=== PATIENT | female | born 1980 | race Caucasian/White ===

== ENCOUNTER → 2016-11-07 | Outpatient (CLI) | payer OTHER ==
[~2016-11-07] MED LIST: ANAPROX DS550 MG PO; ATARAX25 MG PO; ATIVAN0.5 MG PO; BACTRIM DS 8001 TA1 PO; BENADRYL ALLERG25 M5 PO; BENTYL10 MG PO; CIPROFLOXACIN500 MG PO; CLARITIN-D 12HR1 T12 PO; CLARITIN-D 24 H1 T24 PO; CLARITIN10 MG PO; CLEOCIN150 MG PO; CYCLOBENZAPRINE10 MG PO; FIORICET 325 MG1 TAB PO; Fioricet 325 MG1 TAB PO; HYDROCODONE BIT1 T11 PO; IBU-8800 MG PO; IBU800 MG PO; LEVOTHYROXINE0.05 M1 PO; MEDROL DOSEPAK4 MG PO; MOTRIN600 MG PO; MOTRIN800 MG PO; Motrin,Rufen800 MG PO; NORFLEX100 MG PO; OVRAL-21 50 MCG1 TAB PO; PREDNICOT20 MG PO; PRILOSEC20 M1 PO; PROVENTIL0.09 MG/AC IH; ROBITUSSIN AC 10 MG/ PO; TESSALON PERLE200 MG PO; TOPAMAX50 MG PO; TRAMADOL HCL50 MG PO; TRIMOX500 MG PO; VIBRAMYCIN100 MG PO; VICODIN 5/500 505 MG PO; VITAMIN D1000 IU PO; WALKER; ZANTAC150 MG PO; ZIPRASIDONE HCL20 M1 PO; ZITHROMAX Z PA250 MG PO; ZITHROMAX250 MG PO; ZOFRAN ODT4 MG SL; ZOFRAN4 MG PO; ZOLOFT100 MG PO
== END | disposition home or self-care (01) ==
LOC: CT 07:45
DX: R22.31 Localized swelling, mass and lump, right upper limb (principal)

== ENCOUNTER → 2016-11-14 | Outpatient (CLI) | payer OTHER | END | disposition home or self-care (01) | LOC: MRI 06:49 | DX: M19.011 Primary osteoarthritis, right shoulder (principal) ==

== ENCOUNTER 2018-04-09 19:32 | Emergency (ER) | payer OTHER ==
[~2018-04-09] VITALS: Ht 147.3 cm; Wt 76.7 kg
--- NOTE | ~2018-04-09 | EKG ---
[place], [place] ELECTROCARDIOGRAM REPORT NAME: MICHAEL HERNÁNDEZ UNIT #: [id number] ROOM: DOCTOR: EPIPHANY DRAFT REPORT BIRTHDATE: [birth year] [facility] Test Date: 2018-04-09 Test Time: 20:10:11 Pat Name: MICHAEL HERNÁNDEZ Department: Room: Gender: F Health Promotion Officer: ANG : 1980 Requested By: LUPE ISIDRO Order Number: [id number] Reading MD: Shankar Langford MD Measurements Intervals Marcy Rate: 55 P: 19 NM: 148 QRS: 30 QRSD: 78 T: 19 QT: 423 QTc: 405 Interpretive Statements Sinus rhythm Low voltage, precordial leads Electronically Signed On 04-11-2018 11:03:02 PDT by Shankar Langford MD CM:EKGRPT:ELECTROCARDIOGRAM REPORT 09 1103 LUPE SALAZAR DRAFT REPORT LUPE ISIDRO
[2018-04-09 20:10] LABS: BILIRUBIN NEGATIVE (NEGATIVE); BLOOD NEGATIVE (NEGATIVE); CLARITY CLEAR (CLEAR); COLOR YELLOW (YELLOW); GLUCOSE NEGATIVE (NEGATIVE); KETONE NEGATIVE (NEGATIVE); LEUKO ESTERASE TRACE (NEGATIVE); NITRITE NEGATIVE (NEGATIVE); PH 6.5 (5.0-9.0); SPECIFIC GRAVITY <= 1.005 (1.005-1.030); UROBILINOGEN 0.2 E.U./dl (0.2-1.0)
[2018-04-09 20:11] LABS: BASO % 0.3 % (0.0-1.0); EOS # 0.4 10*3/uL (0.0-0.4); EOS % 3.7 % (1.0-4.0); HEMATOCRIT 36.8 % (37.0-47.0); HEMOGLOBIN 12.3 g/dl (12.0-16.0); LYMPH # 2.4 10*3/uL (1.3-4.4); LYMPH % 23.6 % (27.0-41.0); MEAN CELL VOLUME 86.4 fl (81.0-99.0); MEAN CORPUSCULAR HGB 28.9 pg (27.0-31.0); MEAN CORPUSCULAR HGB CONC 33.4 g/dl (33.0-37.0); MEAN PLATELET VOLUME 10.1 fl (9.6-12.3); MONO # 0.6 10*3/uL (0.1-1.0); MONO % 5.8 % (3.0-9.0); NEUT # 6.6 10*3/uL (2.3-7.9); NEUT % 66.3 % (47.0-73.0); PLATELET COUNT AUTOMATED 258 10*3/uL (130-400); RED BLOOD COUNT 4.26 10*6/uL (4.10-5.10); RED CELL DISTRI WIDTH 12.4 % (0-14.5)
[2018-04-09 20:16] LABS: RBC 0-2 rbc/hpf (0-2)
[2018-04-09 20:17] LABS: BACTERIA 2+
[2018-04-09 20:27] LABS: ALBUMIN 3.6 gm/dl (3.1-4.5); ALKALINE PHOSPHATASE 80 U/L (45-117); BUN 8 mg/dl (7-24); CHLORIDE 103 mmol/L (98-107); CREATININE 0.99 mg/dL (0.55-1.02); LIPASE 157 U/L (73-393); POTASSIUM 3.9 mmol/L (3.5-5.1); SGOT/AST 18 IU/L (3-35); SGPT/ALT 19 U/L (12-78); SODIUM 138 mmol/L (136-145); TOTAL PROTEIN 7.4 gm/dL (6.4-8.2)
[2018-04-09 20:29] LABS: BETA-HCG, QUANT < 1.0 mIU/mL (1-3)
[2018-04-09 21:03] VITALS: BP 103/63
[2018-04-09] MEDS ORDERED: Zofran4 MG SL (23:19)
[2018-04-09] MEDS ORDERED: ULTRAM50 MG PO (23:19)
[2018-04-09] MEDS ORDERED: PEPCID40 MG PO (23:19)
== END 2018-04-09 23:37 | disposition home or self-care (01) ==
LOC: ED 19:32
PROVIDERS: Student in an Organized Health Care Education/Training Program
DX: R10.9 Unspecified abdominal pain (principal); R11.0 Nausea; Z88.0 Allergy status to penicillin; Z88.6 Allergy status to analgesic agent; Z88.1 Allergy status to other antibiotic agents; Z79.899 Other long term (current) drug therapy

== ENCOUNTER 2020-10-17 13:30 | Emergency (ER) | payer MEDICAID ==
[~2020-10-17] VITALS: Ht 147.3 cm; Wt 72.6 kg
[~2020-10-17 13:30] MED LIST changes: +PEPCID40 MG PO; +ULTRAM50 MG PO; +Zofran4 MG SL
[2020-10-17 13:37] VITALS: BP 127/75
== END 2020-10-17 16:45 | disposition home or self-care (01) ==
LOC: ED 13:30
DX: S93.402A Sprain of unspecified ligament of left ankle, initial encounter (principal); S86.912A Strain of unspecified muscle(s) and tendon(s) at lower leg level, left leg, initial encounter; S90.32XA Contusion of left foot, initial encounter; S90.112A Contusion of left great toe without damage to nail, initial encounter; S90.122A Contusion of left lesser toe(s) without damage to nail, initial encounter; Z88.1 Allergy status to other antibiotic agents; Z88.5 Allergy status to narcotic agent; Z88.0 Allergy status to penicillin; Z79.899 Other long term (current) drug therapy; Z98.51 Tubal ligation status; Z90.49 Acquired absence of other specified parts of digestive tract; W10.8XXA Fall (on) (from) other stairs and steps, initial encounter; Y93.89 Activity, other specified; Y92.89 Other specified places as the place of occurrence of the external cause; Y99.8 Other external cause status

== ENCOUNTER 2021-05-30 17:45 | Emergency (ER) | payer OTHER ==
[~2021-05-30] VITALS: Ht 147.3 cm; Wt 68.5 kg
[2021-05-30 17:55] VITALS: BP 118/76
[2021-05-30 20:09] LABS: BASO % 0.5 % (0.0-1.0); EOS # 0.6 10*3/uL (0.0-0.4); EOS % 7.3 % (1.0-4.0); LYMPH # 3.2 10*3/uL (1.3-4.4); LYMPH % 37.5 % (27.0-41.0); MEAN CELL VOLUME 84.2 fl (81.0-99.0); MEAN CORPUSCULAR HGB 28.5 pg (27.0-31.0); MEAN CORPUSCULAR HGB CONC 33.8 g/dl (33.0-37.0); MONO # 0.6 10*3/uL (0.1-1.0); MONO % 7.1 % (3.0-9.0); NEUT # 4.1 10*3/uL (2.3-7.9); NEUT % 47.4 % (47.0-73.0); PLATELET COUNT AUTOMATED 284 10*3/uL (130-400); RED BLOOD COUNT 4.63 10*6/uL (4.10-5.10); RED CELL DISTRI WIDTH 12.1 % (0-14.5); WHITE BLOOD COUNT 8.6 10*3/uL (4.8-10.8)
[2021-05-30 20:21] LABS: ACT PARTIAL THROMBO TIME 26.1 SECONDS (20.0-32.1)
[2021-05-30 20:25] LABS: ALBUMIN 3.2 gm/dl (3.1-4.5); ALKALINE PHOSPHATASE 78 U/L (45-117); BUN 6 mg/dl (7-24); CHLORIDE 107 mmol/L (98-107); CREATININE 0.87 mg/dL (0.55-1.02); LIPASE 89 U/L (73-393); POTASSIUM 3.7 mmol/L (3.5-5.1); SGOT/AST 16 IU/L (3-35); SGPT/ALT 18 U/L (12-78); SODIUM 139 mmol/L (136-145); TOTAL PROTEIN 7.3 gm/dL (6.4-8.2)
[2021-05-30 20:26] LABS: TROPONIN I < 0.015 ng/ml (<0.045)
[2021-05-30 20:58] LABS: BILIRUBIN Negative (Negative); BLOOD Negative (Negative); CLARITY Cloudy (Clear); COLOR Yellow (Yellow); GLUCOSE Negative (Negative); KETONE Trace (Negative); LEUKO ESTERASE 2+ (Negative); NITRITE Negative (Negative); PH 5.5 (4.5-8.0)
[2021-05-30 21:07] LABS: URINE AMPHETAMINES < 1000 (1000ng/ml); URINE BARBITURATES < 200 (200ng/ml); URINE BENZODIAZEPINES < 200 (200ng/ml); URINE CANNABINOIDS (THC) < 50 (50ng/ml); URINE COCAINE < 300 (300ng/ml); URINE METHADONE < 300 (300ng/ml); URINE OPIATES < 300 (300ng/ml)
[2021-05-30 21:08] LABS: BACTERIA 3+; EPITHELIAL CELLS 41-50; WBC TNTC wbc/hpf (0-5)
[2021-05-30 21:10] LABS: URINE PHENCYCLIDINE < 25 (25ng/ml)
[2021-05-30] MEDS ORDERED: SEPTDS PO (22:31)
== END 2021-05-30 22:38 | disposition left against medical advice (07) ==
LOC: ED 17:45
PROVIDERS: Physician Assistant
DX: G45.9 Transient cerebral ischemic attack, unspecified (principal); R30.0 Dysuria; Z88.1 Allergy status to other antibiotic agents; Z88.5 Allergy status to narcotic agent; Z88.0 Allergy status to penicillin; Z79.899 Other long term (current) drug therapy; Z98.890 Other specified postprocedural states; Z98.51 Tubal ligation status; Z90.49 Acquired absence of other specified parts of digestive tract

== ENCOUNTER 2022-02-21 11:41 | Emergency (ER) | payer OTHER ==
[~2022-02-21] VITALS: Ht 124 cm; Wt 67.1 kg
[~2022-02-21 11:41] MED LIST changes: +SEPTDS PO
[2022-02-21] MEDS ORDERED: OXYBUTYNIN ER15 MG PO (11:59)
[2022-02-21] MEDS ORDERED: LEVOTHYROXINE112 MC1 PO (12:00)
[2022-02-21] MEDS ORDERED: TRAZODONE150 MG PO (12:01)
[2022-02-21 12:02] VITALS: BP 128/82
== END 2022-02-21 16:38 | disposition home or self-care (01) ==
LOC: ED 11:41
DX: G43.909 Migraine, unspecified, not intractable, without status migrainosus (principal); R11.2 Nausea with vomiting, unspecified; Z88.1 Allergy status to other antibiotic agents; Z88.5 Allergy status to narcotic agent; Z88.0 Allergy status to penicillin; Z79.899 Other long term (current) drug therapy; Z98.51 Tubal ligation status; Z98.890 Other specified postprocedural states; Z90.49 Acquired absence of other specified parts of digestive tract

== ENCOUNTER 2022-07-01 08:50 | Emergency (ER) | payer OTHER ==
[~2022-07-01] VITALS: Ht 147.3 cm; Wt 71.7 kg
[~2022-07-01 08:50] MED LIST changes: +LEVOTHYROXINE112 MC1 PO; +OXYBUTYNIN ER15 MG PO; +TRAZODONE150 MG PO
[2022-07-01 09:23] VITALS: BP 137/74
== END 2022-07-01 10:45 | disposition home or self-care (01) ==
LOC: ED 08:50
DX: J02.9 Acute pharyngitis, unspecified (principal); R05.9 Cough, unspecified; R50.9 Fever, unspecified; Z88.0 Allergy status to penicillin; Z88.1 Allergy status to other antibiotic agents; Z88.8 Allergy status to other drugs, medicaments and biological substances; Z79.899 Other long term (current) drug therapy; Z98.890 Other specified postprocedural states; Z90.49 Acquired absence of other specified parts of digestive tract; Z98.51 Tubal ligation status

== ENCOUNTER 2023-10-01 18:30 | Emergency (ER) | payer OTHER ==
[~2023-10-01] VITALS: Ht 147.3 cm; Wt 76.2 kg
[2023-10-01 18:49] VITALS: BP 131/79
[2023-10-01] MEDS ORDERED: LUNESTA1 M1 PO (19:00)
[2023-10-01] MEDS ORDERED: VITAMIN D31250 MC2 PO (19:01)
[2023-10-01] MEDS ORDERED: HYDROXYZINE HCL25 MG PO (19:02)
== END 2023-10-01 19:45 | disposition left against medical advice (07) ==
LOC: ED 18:30
DX: M79.652 Pain in left thigh (principal); K21.9 Gastro-esophageal reflux disease without esophagitis; F32.A Depression, unspecified; Z53.29 Procedure and treatment not carried out because of patient's decision for other reasons; Z88.1 Allergy status to other antibiotic agents; Z88.5 Allergy status to narcotic agent; Z88.0 Allergy status to penicillin; Z88.8 Allergy status to other drugs, medicaments and biological substances; Z90.49 Acquired absence of other specified parts of digestive tract; Z98.51 Tubal ligation status; Z98.890 Other specified postprocedural states

== ENCOUNTER → 2023-10-02 | Outpatient (CLI) | payer OTHER ==
[~2023-10-02] MED LIST changes: +HYDROXYZINE HCL25 MG PO; +LUNESTA1 M1 PO; +VITAMIN D31250 MC2 PO
== END | disposition home or self-care (01) ==
LOC: US 09:41
PROVIDERS: ATTEND Nurse Practitioner
DX: R60.9 Edema, unspecified (principal); R20.2 Paresthesia of skin

== ENCOUNTER → 2024-03-05 | Outpatient (CLI) | payer OTHER | END | disposition home or self-care (01) | LOC: US 07:55 | PROVIDERS: ATTEND Nurse Practitioner | DX: M25.562 Pain in left knee (principal) ==

== ENCOUNTER → 2024-11-07 | Outpatient (CLI) | payer OTHER | END | disposition home or self-care (01) | LOC: RAD 10:55 | PROVIDERS: ATTEND Nurse Practitioner | DX: M25.552 Pain in left hip (principal) ==

== ENCOUNTER → 2024-11-13 | Outpatient (CLI) | payer OTHER ==
[2024-11-13 17:23] LABS: FREE T4 1.38 ng/dl (0.89-1.76)
== END | disposition home or self-care (01) ==
LOC: LAB 16:46
PROVIDERS: ATTEND Nurse Practitioner
DX: E03.9 Hypothyroidism, unspecified (principal)

== ENCOUNTER 2024-11-26 10:41 | Emergency (ER) | payer OTHER ==
[~2024-11-26] VITALS: Ht 147.3 cm; Wt 78.9 kg
[2024-11-26 10:56] VITALS: BP 125/72
[2024-11-26] MEDS ORDERED: Metoclopramide Hydrochloride 10 MG/2 ML VIAL IV ONE (11:05)
[2024-11-26] MEDS ORDERED: diphenhydrAMINE hydrochloride 50 MG/ML VIAL IV ONE (11:05)
[2024-11-26] MEDS ORDERED: SODIUM CHLORIDE 0.9% 1,000 ML IV ONE (11:05)
[2024-11-26 11:21] LABS: BASO % 0.4 % (0.0-1.0); EOS # 0.2 10*3/uL (0.0-0.4); EOS % 1.7 % (1.0-4.0); HEMATOCRIT 42.5 % (37.0-47.0); MEAN CELL VOLUME 86.2 fl (81.0-99.0); MEAN CORPUSCULAR HGB 28.2 pg (27.0-31.0); MEAN CORPUSCULAR HGB CONC 32.7 g/dl (33.0-37.0); MEAN PLATELET VOLUME 9.3 fl (9.6-12.3); MONO # 0.6 10*3/uL (0.1-1.0); MONO % 5.9 % (3.0-9.0); NEUT # 6.9 10*3/uL (2.3-7.9); NEUT % 74.3 % (47.0-73.0); PLATELET COUNT AUTOMATED 295 10*3/uL (130-400); RED BLOOD COUNT 4.93 10*6/uL (4.10-5.10); RED CELL DISTRI WIDTH 12.3 % (0-14.5); WHITE BLOOD COUNT 9.3 10*3/uL (4.8-10.8)
[2024-11-26 11:44] LABS: ALKALINE PHOSPHATASE 187 U/L (46-116); BUN 9 mg/dl (9-23); CHLORIDE 103 mmol/L (98-107); LIPASE 30 U/L (12-53); POTASSIUM 3.7 mmol/L (3.4-5.1); SGPT/ALT 281 U/L (5-49); TOTAL PROTEIN 7.3 gm/dL (6.0-8.0)
[2024-11-26] MEDS ORDERED: IOHEXOL 300 MG/ML 100 ML VIAL IV ONE (12:00)
[2024-11-26 12:08] LABS: BILIRUBIN 2+ (Negative); BLOOD Negative (Negative); CLARITY Cloudy (Clear); COLOR Dark Yellow (Yellow); GLUCOSE Negative (Negative); KETONE 3+ (Negative); LEUKO ESTERASE Trace (Negative); NITRITE Negative (Negative); PH 5.5 (4.5-8.0); SPECIFIC GRAVITY >= 1.030 (1.001-1.030)
[2024-11-26] MEDS ORDERED: IOHEXOL 300 MG/ML 100 ML VIAL ONE (12:19)
[2024-11-26 12:36] LABS: RBC 0-2 rbc/hpf (0-2)
[2024-11-26 12:37] LABS: BACTERIA 2+; EPITHELIAL CELLS 21-30; MUCOUS 3+
== END 2024-11-26 14:21 | disposition left against medical advice (07) ==
LOC: ED 10:41
PROVIDERS: Nurse Practitioner Family
DX: R10.13 Epigastric pain (principal); R74.01 Elevation of levels of liver transaminase levels; R11.2 Nausea with vomiting, unspecified; K21.9 Gastro-esophageal reflux disease without esophagitis; Z79.899 Other long term (current) drug therapy; Z88.0 Allergy status to penicillin; Z88.1 Allergy status to other antibiotic agents; Z88.5 Allergy status to narcotic agent; Z88.8 Allergy status to other drugs, medicaments and biological substances; Z98.890 Other specified postprocedural states

== ENCOUNTER → 2025-07-01 | Outpatient (CLI) | payer OTHER | END | disposition home or self-care (01) | LOC: RAD 16:11 | PROVIDERS: ATTEND Nurse Practitioner | DX: M43.17 Spondylolisthesis, lumbosacral region (principal); M47.816 Spondylosis without myelopathy or radiculopathy, lumbar region; M25.78 Osteophyte, vertebrae; M54.9 Dorsalgia, unspecified ==